=== PATIENT | male | born 1970 | race Caucasian/White ===

== ENCOUNTER 2016-10-20 17:48 | Emergency (ER) | payer OTHER ==
[~2016-10-20] VITALS: Ht 167.6 cm; Wt 83.9 kg
[2016-10-20 18:00] VITALS: BP 153/98
--- NOTE | 2016-10-20 18:26 | PHYS DOC ---
Adult General Chief Complaint Chief Complaint: ANIMAL BITE HPI HPI Patient is a 46 year old male who presents with complaint of a dog bite wound to the left forearm. Patient states that the wound occurred at approximately 1600. He states that he was feeding his dogs at the time. 2 of the dogs started to fight over the food and the patient states he tried to break up a fight between the dogs. This resulted in a bite wound to his left forearm. Patient states that the dogs are up-to-date on all immunizations including rabies vaccine. Patient also states he last received a tetanus shot in 2012. Patient denies any loss of motor function to the left hand distal to his bite wound. Bleeding was controlled prior to arrival and patient states that he rinsed the wound with tap water for approximately 15 minutes before arrival. Due to the wound gaping open, the patient states that he would likely need to have a repair. Patient denies any other injuries. Patient is not currently on blood thinners. Review of Systems Review of Systems Constitutional: Denies fever or chills [] HENT: Denies nasal congestion or sore throat [] Musculoskeletal: Denies back pain or joint pain [] Integument: Bite wound to left forearm[] Neurologic: Denies headache, focal weakness or sensory changes [] Current Medications Current Medications Current Medications Medications (Trade) Dose Ordered Sig/Justin Start Time Stop Time Status Last Admin Dose Admin Lidocaine/ Epinephrine (Xylocaine 2%-Epi 1:100,000) 20 ml 1X ONCE 10/20/16 18:30 10/20/16 18:31 Allergies Allergies Allergies Coded Allergies Type Severity Reaction Last Updated Verified ciprofloxacin Allergy Unknown Swelling 10/20/16 Yes ibuprofen Allergy Unknown Hives 10/20/16 Yes Physical Exam Physical Exam Constitutional: Well developed, well nourished, no acute distress, non-toxic appearance. [] HENT: Normocephalic, atraumatic, bilateral external ears normal, oropharynx moist, no oral exudates, nose normal. [] Skin: Warm, dry, 3.5 cm L-shaped laceration to left forearm extending through dermal layer into fatty tissue, bleeding controlled. [] Extremities: No tenderness, no cyanosis, no clubbing, ROM intact, no edema. [] Neurologic: Alert and oriented X 3, normal motor function, normal sensory function, no focal deficits noted. [] Current Patient Data Vital Signs Vital Signs Date Time Temp Pulse Resp B/P (MAP) Pulse Ox O2 Delivery O2 Flow Rate FiO2 10/20/16 18:00 98.0 79 12 97 Room Air Lab Results None performed EKG EKG Not performed[] Radiology/Procedures Radiology/Procedures Indication: Left forearm laceration Procedure: The patient was placed in the appropriate position and anesthesia around the laceration was achieved with injection of lidocaine 2% with epinephrine. The area was then irrigated with high volume tampon or and the skin was prepped with Betadine. The laceration was closed using wan. The wound area was then dressed with Telfa and Kirlex. Total repaired wound length: 3.5 cm. Other Items: Staple count: 5 The patient tolerated the procedure without difficulty. Complications: None.[] Course & Med Decision Making Course & Med Decision Making Pertinent Labs and Imaging studies reviewed. (See chart for details) Patient's laceration was cleaned and repaired as outlined in the procedure note. Animal control was notified regarding the bite wound in the emergency department. Spoke with patient regarding use of x-ray to increase sensitivity for evaluation of retained foreign body. The patient voiced understanding of this and declined x-ray in the emergency department. No visible foreign body was noted on exam. Advised patient follow-up in 10-14 days for removal of wan. The patient will be kept on 5 day course of Augmentin for infection prophylaxis. Advised return emergency department for any worsening symptoms. Patient voiced understanding and in agreement with treatment plan. Dragon Disclaimer Dragon Disclaimer This chart was dictated in whole or in part using Voice Recognition software in a busy, high-work load, and often noisy Emergency Department environment. It may contain unintended and wholly unrecognized errors or omissions. Departure Departure: Impression: Primary Impression: Dog bite of forearm Disposition: 01 HOME, SELF-CARE Condition: IMPROVED Referrals: OLIVER FRANCIS DO, M[facility] (PCP) Patient Instructions: Animal Bite, Laceration Care, Adult, Staple Care and Removal Additional Instructions: Follow-up in 10-14 days with your primary doctor for removal of your wan. Return to the emergency department for any worsening symptoms. Scripts Amoxicillin/Potassium Clav (AUGMENTIN 875-125 TABLET) 1 Each Tablet 1 TAB PO BID, #10 TAB Prov: LARRY LONG MD 10/20/16 Problem Qualifiers Primary Impression: Dog bite of forearm Encounter type: initial encounter Laterality: left Qualified Codes: S51.852A - Open bite of left forearm, initial encounter; W54.0XXA - Bitten by dog, initial encounter LARRY LONG MD Oct 20, 2016 18:26
[2016-10-20] MEDS ORDERED: LIDOCAINE 2%/EPI 1:100,000 20 ML VIAL. IJ ONE (18:30)
[2016-10-20] MEDS ORDERED: AMOX1TAB61 PO (18:48)
[2016-10-21] MEDS ORDERED: SULF1TAB24 PO (23:49)
== END 2016-10-20 18:52 | disposition home or self-care (01) ==
LOC: ER 17:48
DX: S51.852A Open bite of left forearm, initial encounter (principal); Z88.1 Allergy status to other antibiotic agents; Z88.6 Allergy status to analgesic agent; W54.0XXA Bitten by dog, initial encounter; Y93.89 Activity, other specified; Y99.8 Other external cause status; Y92.89 Other specified places as the place of occurrence of the external cause
CPT/HCPCS: 12002; 99283-25

== ENCOUNTER 2016-10-21 23:11 | Emergency (ER) | payer OTHER ==
[~2016-10-21] VITALS: Ht 167.6 cm; Wt 83.9 kg
[~2016-10-21 23:11] MED LIST: AMOX1TAB61 PO
[2016-10-21 23:24] VITALS: BP 149/86
--- NOTE | 2016-10-21 23:29 | ED.ADGEN ---
Past History Past Medical History: Other Past Surgical History: Other Alcohol Use: Rarely Drug Use: None Adult General Chief Complaint Chief Complaint " I got bit by my dog Roxy . yesterday.. I was breaking up a food fight.. and he bit my Lt. arm.. they cleaned it up yesterday and started me on antibiotics.. but today it is more red..." HPI HPI Patient is a 46 year old male who presents with above hx and complaints. Pt. has a laceration of Lt forearm, that been closed with wan. . Pt. has surrounding edema an erythema 6x6 cm, and some lymph streaking leading towards antecubital space. Distal neurovascular intact. Patient up-to-date with vaccinations. Follows at [facility]. Its compliance with meds. Augmentin. Dog remain healthy. Dog also Up to date also with vaccinations and under surveillance.. Reviewed ED chart of yesterday. Pt. denies travel, specific ill contact, or immunosuppression. Pt. also handles horses every day. Review of Systems Review of Systems Constitutional: Denies fever or chills [] Eyes: Denies change in visual acuity, redness, or eye pain [] HENT: Denies nasal congestion or sore throat [] Respiratory: Denies cough or shortness of breath [] Cardiovascular: No additional information not addressed in HPI [] GI: Denies abdominal pain, nausea, vomiting, bloody stools or diarrhea [] : Denies dysuria or hematuria [] Musculoskeletal: Denies back pain or joint pain [] Integument: Denies rash or skin lesions []Wound re-check Neurologic: Denies headache, focal weakness or sensory changes [] Endocrine: Denies polyuria or polydipsia [] Family History Family History Non - contributory Current Medications Current Medications Current Medications Medications (Trade) Dose Ordered Sig/Justin Start Time Stop Time Status Last Admin Dose Admin Ceftriaxone Sodium 2 gm/ Sodium Chloride 100 ml @ 200 mls/hr 1X ONCE 10/21/16 23:45 10/22/16 00:14 DC 10/21/16 23:45 200 MLS/HR Ceftriaxone Sodium (Rocephin) 2 gm STK-MED ONCE 10/21/16 23:38 10/21/16 23:39 DC Sodium Chloride 100 ml @ As Directed STK-MED ONCE 10/21/16 23:38 10/21/16 23:39 DC Trimethoprim/ Sulfamethoxazole (Bactrim Ds) 1 tab 1X ONCE 10/22/16 00:00 10/22/16 00:01 DC 10/22/16 00:00 1 TAB Allergies Allergies Allergies Coded Allergies Type Severity Reaction Last Updated Verified ciprofloxacin Allergy Unknown Swelling 10/20/16 Yes ibuprofen Allergy Unknown Hives 10/20/16 Yes Physical Exam Physical Exam Constitutional: Well developed, well nourished, no acute distress, non-toxic appearance. [] HENT: Normocephalic, atraumatic, bilateral external ears normal, oropharynx moist, no oral exudates, nose normal. [] Eyes: PERRLA, EOMI, conjunctiva normal, no discharge. [] Neck: Normal range of motion, no tenderness, supple, no stridor. [] Cardiovascular:Heart rate regular rhythm, no murmur [] Lungs & Thorax: Bilateral breath sounds clear to auscultation [] Abdomen: Bowel sounds normal, soft, no tenderness, no masses, no pulsatile masses. [] Skin: Warm, dry, no erythema, no rash. [] Dog bite Lt forearm- as per HPI Back: No tenderness, no CVA tenderness. [] Extremities: No tenderness, no cyanosis, no clubbing, ROM intact, no edema. [] Right forearm laceration as per history of present illness and prior ED report Neurologic: Alert and oriented X 3, normal motor function, normal sensory function, no focal deficits noted. [] Psychologic: Affect normal, judgement normal, mood normal. [] Current Patient Data Vital Signs Vital Signs Date Time Temp Pulse Resp B/P (MAP) Pulse Ox O2 Delivery O2 Flow Rate FiO2 10/21/16 23:24 97.9 66 20 98 Room Air EKG EKG [] Radiology/Procedures Radiology/Procedures [] Course & Med Decision Making Course & Med Decision Making Pertinent Labs and Imaging studies reviewed. (See chart for details) Patient received 2 g of Rocephin here IV. Patient proceeded Bactrim DS 1 tablet. Patient received a prescription for Bactrim DS to be taken in addition to the Augmentin for staph coverage. Patient to continue Augmentin 875 twice day as previously directed. Discussed with patient options for wan because of possible increased infection- patient declines at this time. Patient will have additional antibiotics Bactrim DS for staph coverage. One twice a day for 10 days. Patient to have wound rechecked tomorrow night especially if no improvement. [] Final Impression Final Impression 1. Dog bite wound - recheck[] Problems: Dragon Disclaimer Dragon Disclaimer This electronic medical record was generated, in whole or in part, using a voice recognition dictation system. AG HEATH MD Oct 21, 2016 23:29
[2016-10-21] MEDS ORDERED: IV NORMAL SALINE 100ML 100 ML ONE (23:38)
[2016-10-21] MEDS ORDERED: SULF1TAB24 PO (23:49)
[2016-10-22] MEDS ORDERED: SMZ/TMP 800/160MG TABLET. PO ONE
== END 2016-10-22 00:22 | disposition home or self-care (01) ==
LOC: ER 23:11
DX: Z48.01 Encounter for change or removal of surgical wound dressing (principal); Z88.1 Allergy status to other antibiotic agents; Z88.6 Allergy status to analgesic agent
CPT/HCPCS: 96365; 99284; J0696

== ENCOUNTER 2017-03-19 08:52 | Emergency (ER) | payer OTHER ==
[~2017-03-19] VITALS: Ht 167.6 cm; Wt 86.2 kg
[~2017-03-19 08:52] MED LIST changes: +SULF1TAB24 PO
--- NOTE | 2017-03-19 09:56 | PHYS DOC ---
Past History Past Medical History: Other Additional Past Medical Histor: syncope, degenerative joint disease Past Surgical History: Other Smoking: Non-smoker Alcohol Use: Rarely Drug Use: None Adult General Chief Complaint Chief Complaint: SYNCOPE [facility] HPI 47-year-old male patient with history of syncope with unknown reason states he had a syncopal episode 3 days ago while he was at home and woke up on Hospital orthopedic injury to right side of his face. Patient state he did not have other injuries and denies chest pain and shortness of breath before or after his fall. Patient states his primary care physician won't see him before he comes to emergency room for medical clearance. Patient complaining of more pain in his head and doesn't want pain medication. Patient is up-to-date with his immunization. Review of Systems Review of Systems Constitutional: Denies fever or chills [] Eyes: Denies change in visual acuity, redness, or eye pain [] HENT: Denies nasal congestion or sore throat [] Respiratory: Denies cough or shortness of breath [] Cardiovascular: No additional information not addressed in HPI [] GI: Denies abdominal pain, nausea, vomiting, bloody stools or diarrhea [] : Denies dysuria or hematuria [] Musculoskeletal: Denies back pain or joint pain [] Integument: Contusion and abrasion Neurologic: Denies headache, focal weakness or sensory changes [] Endocrine: Denies polyuria or polydipsia [] All other systems were reviewed and found to be within normal limits, except as documented in this note. Allergies Allergies Allergies Coded Allergies Type Severity Reaction Last Updated Verified ciprofloxacin Allergy Unknown Swelling 10/20/16 Yes ibuprofen Allergy Unknown Hives 10/20/16 Yes Physical Exam Physical Exam Constitutional: Well developed, well nourished, no acute distress, non-toxic appearance. [] HENT: Normocephalic, bilateral external ears normal, oropharynx moist, no oral exudates, nose normal, mild contusion right forehead with extension to periorbital area and forehead abrasion. [] Eyes: PERRLA, EOMI, conjunctiva normal, no discharge. [] Neck: Normal range of motion, no tenderness, supple, no stridor. [] Cardiovascular:Heart rate regular rhythm, no murmur [] Lungs & Thorax: Bilateral breath sounds clear to auscultation [] Abdomen: Bowel sounds normal, soft, no tenderness, no masses, no pulsatile masses. [] Skin: Warm, dry, no erythema, no rash. [] Back: No tenderness, no CVA tenderness. [] Extremities: No tenderness, no cyanosis, no clubbing, ROM intact, no edema. [] Neurologic: Alert and oriented X 3, normal motor function, normal sensory function, no focal deficits noted. [] Psychologic: Affect normal, judgement normal, mood normal. [] Current Patient Data Vital Signs Vital Signs Date Time Temp Pulse Resp B/P (MAP) Pulse Ox O2 Delivery O2 Flow Rate FiO2 03/19/17 09:00 97.8 84 20 99 Room Air EKG EKG [] Radiology/Procedures Radiology/Procedures [] [address] [address] IMAGING REPORT Signed PATIENT: GEOFF LOZADA ACCOUNT: [id number] : 1970 LOCATION: ER AGE: 47 SEX: M EXAM STATUS: REG ER ORD. PHYSICIAN: BATOOL ALAMO MD REASON: syncope PROCEDURE: CT HEAD WO CONTRAST CT of the head without contrast, 03/19/2017: History: Syncope The ventricles are within normal limits in size. There is no shift of the midline structures. There is no evidence of acute intracranial hemorrhage or mass effect. IMPRESSION: No acute intracranial abnormality is detected. PQRS Compliance Statement: One or more of the following individualized dose reduction techniques were utilized for this examination: 1. Automated exposure control 2. Adjustment of the mA and/or kV according to patient size 3. Use of iterative reconstruction technique DICTATED AND SIGNED BY: IDRIS CASTRO MD DATE: 03/19/17 1028 CC: BATOOL ALAMO MD; OLIVER FRANCIS DO, M[facility] ~ Course & Med Decision Making Course & Med Decision Making Pertinent Imaging studies reviewed. (See chart for details) Evaluation of patient in ER showed 47-year-old male patient with history of syncope and fall after syncopal episode 3 days ago and facial contusion. Patient had unremarkable physical exam except for facial contusion. CT head was unremarkable. Plan discharge patient home to diagnose of recurrent syncope and fall. [] Dragon Disclaimer Dragon Disclaimer This electronic medical record was generated, in whole or in part, using a voice recognition dictation system. Departure Departure: Impression: Primary Impression: Syncope Additional Impressions: Fall Facial contusion Disposition: 01 HOME, SELF-CARE (at 1045) Condition: STABLE Referrals: OLIVER FRANCIS DO, [facility] (PCP) Patient Instructions: Facial or Scalp Contusion, Syncope Additional Instructions: Follow-up with your primary care physician regarding recurrent syncope Return to ER if not getting better Problem Qualifiers BATOOL ALAMO MD Mar 19, 2017 09:56
--- NOTE | 2017-03-19 10:32 | RAD ---
CT of the head without contrast, 03/19/2017: History: Syncope The ventricles are within normal limits in size. There is no shift of the midline structures. There is no evidence of acute intracranial hemorrhage or mass effect. IMPRESSION: No acute intracranial abnormality is detected. PQRS Compliance Statement: One or more of the following individualized dose reduction techniques were utilized for this examination: 1. Automated exposure control 2. Adjustment of the mA and/or kV according to patient size 3. Use of iterative reconstruction technique
[2017-03-19 10:54] VITALS: BP 120/81
== END 2017-03-19 10:56 | disposition home or self-care (01) ==
LOC: ER 08:52
DX: R55 Syncope and collapse (principal); S00.83XA Contusion of other part of head, initial encounter; Z88.1 Allergy status to other antibiotic agents; Z88.6 Allergy status to analgesic agent; W19.XXXA Unspecified fall, initial encounter; Y93.89 Activity, other specified; Y99.8 Other external cause status; Y92.89 Other specified places as the place of occurrence of the external cause
CPT/HCPCS: 70450; 99284-25